=== PATIENT | female | born 1965 | race African-American/Black ===

== ENCOUNTER 2019-08-18 09:12 | Inpatient (IN) | payer OTHER ==
[2019-08-18 09:43] VITALS: BMI 55.3
--- NOTE | 2019-08-18 10:45 | HP ---
COWS - Scale Resting Pulse: 0= [place] 80 or Below Sweatin= Chills/Flushing Restless Observation: 1= Difficult to Sit Still Pupil Size: 0= Normal to Room Light Bone or Joint Aches: 1= Mild Discomfort Runny Nose/ Eye Tearin= Runny Nose/Eyes GI Upset > 30mins: 2= Nausea/Diarrhea Tremor Observation: 2= Slight Tremor Visible Yawning Observation: 1= 1-2x During Session Anxiety or Irritability: 2=Irritable/Anxious Goose Flesh Skin: 0=Smooth Skin COWS Score: 12 Admission ROS BHS - HPI Chief Complaint: I need to stop using the heroin - I'm ruining my life Allergies/Adverse Reactions: Allergies Allergy/AdvReac Type Severity Reaction Status Date / Time No Known Allergies Allergy Verified 08/18/19 09:34 History of Present Illness: 54 yo woman here for detox from long time use of heroin - denies overdose or black outs, no seizures. History of being at [facility] treatment. 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 Urine tox + oxy but not using oxy separately. Never on suboxone or methadone program which we discussed. Exam Limitations: No Limitations - Ebola screening Have you traveled outside of the country in the last 21 days: No (N) Have you had contact with anyone from an Ebola affected area: No Do you have a fever: No - Review of Systems Constitutional: Chills, Loss of Appetite, Changes in sleep EENT: reports: Nose Congestion Respiratory: reports: SOB with Exertion Cardiac: reports: No Symptoms Reported GI: reports: Constipated, Nausea, Poor Appetite : reports: No Symptoms Reported Musculoskeletal: reports: Back Pain, Joint Pain, Muscle Pain Integumentary: reports: No Symptoms Reported Neuro: reports: Headache, Tremors Endocrine: reports: No Symptoms Reported Hematology: reports: No Symptoms Reported Psychiatric: reports: Judgement Intact, Mood/Affect Appropiate, Orientated x3, Anxious Other Systems: Reviewed and Negative Patient History - Patient Medical History Hx Anemia: No Hx Asthma: No Hx Cancer: No Hx Cardiac Disorders: No Hx Congestive Heart Failure: No Hx Hypertension: No Hx Hypercholesterolemia: No Hx Pacemaker: No HX Cerebrovascular Accident: No Hx Seizures: No Hx Diabetes: No Hx Gastrointestinal Disorders: No Hx Liver Disease: No Hx Genitourinary Disorders: No Hx Sexually Transmitted Disorders: No Hx Renal Disease (ESRD): No Hx Thyroid Disease: No Hx Human Immunodeficiency Virus (HIV): No Hx Hepatitis C: No Hx Depression: Yes (hx psych - with zoloft 2012 -never hospitalized) Hx Suicide Attempt: No Hx Bipolar Disorder: No Hx Schizophrenia: No Other Medical History: knee osteoarthritis - Patient Surgical History Hx Genitourinary Surgery: Yes ( age 15) - PPD History Previous Implant?: Yes Documented Results: Negative w/o proof PPD to be Administered?: Yes - Reproductive History Patient is a Female of Child Bearing Age (11 -55 yrs old): Yes - Smoking Cessation Smoking history: Current every day smoker Have you smoked in the past 12 months: Yes Aproximately how many cigarettes per day: 5 Initiated information on smoking cessation: Yes 'Breaking Loose' booklet given: 08/18/19 (give on floor) - Substance & Tx. History Hx Alcohol Use: Yes Hx Substance Use: Yes Substance Use Type: Alcohol, Heroin Hx Substance Use Treatment: Yes (detox, [facility] 23 months) - Substances abused Heroin Substance route: Inhalation Frequency: Daily Amount used: 5-6 bags/day Age of first use: 29 Date of last use: 08/18/19 Alcohol Substance route: Oral Frequency: Daily (2) Amount used: one 22 oz beer Age of first use: 13 Date of last use: 08/17/19 Admission Physical Exam BHS - Vital Signs Vital Signs: Vital Signs - 24 hr 08/18/19 09:35 Temperature 99.2 F Pulse Rate 62 Respiratory 16 Rate - Physical General Appearance: Yes: Nourished, Appropriately Dressed, Moderate Distress, Obese, Tremorous, Anxious HEENTM: Yes: EOMI, Hearing grossly Normal, Normocephalic, Normal Voice, Pharynx Normal, Nasal Congestion, Other (dentures upper and lower) Respiratory: Yes: Normal Breath Sounds, No Respiratory Distress Neck: Yes: No masses,lesions,Nodules, Supple Breast: Yes: Breast Exam Deferred Cardiology: Yes: Regular Rhythm, Regular Rate Abdominal: Yes: Soft, Protuberent Genitourinary: Yes: Within Normal Limits Back: Yes: Normal Inspection Musculoskeletal: Yes: full range of Motion, Gait Steady, Joint Stiffness Extremities: Yes: Normal Inspection, Pedal Edema Neurological: Yes: Fully Oriented, Alert, Normal Mood/Affect, Normal Response Integumentary: Yes: Normal Color, Warm, Other (multiple small moles on face, abdomen (chronic)) Lymphatic: Yes: Within Normal Limits - Diagnostic (1) Uncomplicated opioid dependence Current Visit: Yes Status: Chronic (2) Alcohol use Current Visit: Yes Status: Chronic Comment: states no withdrawal symptoms if she stops (3) Obesity, morbid (more than 100 lbs over ideal weight or BMI > 40) Current Visit: Yes Status: Chronic (4) Edema of both ankles Current Visit: Yes Status: Chronic (5) Nicotine dependence Current Visit: Yes Status: Chronic (6) Osteoarthritis of knees, bilateral Current Visit: Yes Status: Acute Cleared for Admission [facility] - Detox or Rehab [facility] Level of Care: Medically Managed Detox Regimen/Protocol: Methadone Breathalyzer - Breathalyzer Breathalyzer: 0 Urine Drug Screen - Test Device Lot number: [id number] Expiration date: 04/27/21 - Control Is test valid?: Yes - Results Drug screen NEGATIVE: No Urine drug screen results: MOP-Opiates, OXY-Oxycodone Inpatient Rehab Admission - Rehab Decision to Admit Inpatient rehab admission?: No
[2019-08-18] MEDS ORDERED: MENTHOL/PHENOL 1 EACH UD MM PRN (11:00)
[2019-08-18] MEDS ORDERED: MAGNESIUM HYDROX 2400MG/30ML ORAL SUSPENSION 30 ML CUP PO PRN (11:00)
[2019-08-18] MEDS ORDERED: METHADONE HCL 10 MG TABLET (FOR DETOX USE ONLY) PO ONE (11:00)
[2019-08-18] MEDS ORDERED: ACETAMINOPHEN 325 MG TABLET (FP) PO PRN ×2 (11:00)
[2019-08-18] MEDS ORDERED: BISMUTH SUBSALICYLATE 524 MG/30 ML UD PO PRN (11:00)
[2019-08-18] MEDS ORDERED: clonazePAM 0.5 MG TABLET PO PRN (11:00)
[2019-08-18] MEDS ORDERED: NICOTINE POLACRILEX 4 MG GUM BUC PRN (11:00)
[2019-08-18] MEDS ORDERED: MELATONIN 5 MG TABLETS PO PRN (11:00)
[2019-08-18] MEDS ORDERED: MAG HYDROX/AL HYDROX/SIMETH 30 ML UNIT-DOSE CUP PO PRN (11:00)
[2019-08-18] MEDS ORDERED: METHOCARBAMOL 500 MG TABLET PO PRN (11:00)
[2019-08-18] MEDS ORDERED: MAGNESIUM CITRATE 300 ML BOTTLE PO PRN (11:00)
[2019-08-18] MEDS ORDERED: IBUPROFEN 400 MG TABLET (FP) PO PRN (11:00)
--- NOTE | 2019-08-18 23:40 | EKG ---
Test Reason : Blood Pressure : / mmHG Vent. Rate : 053 BPM Atrial Rate : 053 BPM P-R Int : 146 ms QRS Dur : 090 ms QT Int : 430 ms P-R-T Axes : 047 050 046 degrees QTc Int : 403 ms SINUS BRADYCARDIA WITH SINUS ARRHYTHMIA OTHERWISE NORMAL ECG NO PREVIOUS ECGS AVAILABLE Confirmed by TREASURE ANNE, SHRUTHI ([id number]) on 08/18/2019 11:39:35 PM Referred By: Confirmed By:SHRUTHI AMANDA MD
[2019-08-18] MEDS: cloNIDine HCL 0.1 MG TABLET PO PRN (23:47)
[2019-08-18] MEDS: THIAMINE HCL 100 MG TABLET (FP) PO SCH (23:47)
[2019-08-19] MEDS: cloNIDine HCL 0.1 MG TABLET PO PRN (07:06)
[2019-08-19 09:18] LABS: HEMOGLOBIN 12.1 GM/dL (10.7-15.3); MCH 27.5 pg (25.7-33.7); MCHC 31.9 g/dl (32.0-36.0); MEAN CELL VOLUME 86.2 fl (80-96); MEAN PLT VOLUME 8.9 fl (7.5-11.1); PLATELET COUNT 234 K/MM3 (134-434); RBC 4.41 M/mm3 (3.60-5.2); RDW 16.3 % (11.6-15.6); WHITE BLOOD COUNT 6.7 K/mm3 (4.0-10.0)
[2019-08-19 09:19] LABS: ALBUMIN 3.4 g/dl (3.4-5.0); BILIRUBIN,TOTAL 0.6 mg/dL (0.2-1); BLOOD UREA NITROGEN 11.4 mg/dL (7-18); CALCIUM 9.1 mg/dL (8.5-10.1); CREATININE 0.9 mg/dL (0.55-1.3); POTASSIUM 3.9 mmol/L (3.5-5.1); TOT PROT 6.8 g/dl (6.4-8.2)
[2019-08-19] MEDS ORDERED: METHADONE HCL 5 MG TABLET (FOR DETOX USE ONLY) ONE (09:26)
[2019-08-19] MEDS ORDERED: METHADONE HCL 10 MG TABLET (FOR DETOX USE ONLY) ONE (09:26)
[2019-08-19] MEDS ORDERED: METHADONE (DETOX) 20 MG, METHADONE (DETOX) 5 MG PO ONE (10:00)
[2019-08-19] MEDS: PRENATAL VITAMINS W/ FOLIC ACID TABLET (FP) PO SCH (10:22)
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
--- NOTE | 2019-08-19 18:20 | PN ---
BHS COWS - Scale Resting Pulse: 0= [place] 80 or Below Sweatin= Chills/Flushing Restless Observation: 3= Extraneous Movement Pupil Size: 0= Normal to Room Light Bone or Joint Aches: 2= Severe Diffuse Aches Runny Nose/ Eye Tearin= Runny Nose/Eyes GI Upset > 30mins: 3= Vomiting/Diarrhea Tremor Observation of Outstretched Hands: 2= Slight Tremor Visible Yawning Observation: 0= None Anxiety or Irritability: 2=Irritable/Anxious Goose Flesh Skin: 0=Smooth Skin COWS Score: 15 BHS Progress Note (SOAP) Subjective: Sweating, nausea, tremor Objective: 08/19/19 18:17 Last Vital Signs Temp Pulse Resp BP Pulse Ox 99.9 F H 74 20 149/75 08/19/19 17:14 08/19/19 17:14 08/19/19 17:14 08/19/19 17:14 Elevated b/p (denies htn, on clonidine prn) Laboratory Tests 08/19/19 08/19/19 08/19/19 07:40 07:40 07:40 WBC 6.7 RBC 4.41 Hgb 12.1 Hct 38.0 MCV 86.2 MCH 27.5 MCHC 31.9 L RDW 16.3 H Plt Count 234 MPV 8.9 Sodium 140 Potassium 3.9 Chloride 105 Carbon Dioxide 28 Anion Gap 7 L BUN 11.4 Creatinine 0.9 Est GFR (CKD-EPI)AfAm 83.43 Est GFR (CKD-EPI)NonAf 71.98 Random Glucose 130 H Calcium 9.1 Total Bilirubin 0.6 AST 11 L ALT 17 Alkaline Phosphatase 93 Total Protein 6.8 Albumin 3.4 RPR Titer Nonreactive Labs reviewed: serum glucose 130mg/dl 08/19/19 18:18 Assessment: 08/19/19 18:19 Withdrawal sxs Noted with elevated b/p and hyperglycemia Plan: Continue detox Encouraged PO water intake Elevated b/p: denies htn, monitor b/p, continue clonidine prn Hyperglycemia: repeat fasting glucose, send HbA1c
[2019-08-19] MEDS: THIAMINE HCL 100 MG TABLET (FP) PO SCH (23:56)
[2019-08-20] MEDS ORDERED: METHADONE HCL 10 MG TABLET (FOR DETOX USE ONLY) PO ONE (10:00)
[2019-08-20] MEDS: PRENATAL VITAMINS W/ FOLIC ACID TABLET (FP) PO SCH (11:03)
[2019-08-20] MEDS ORDERED: diazePAM 5 MG TABLET PO PRN (12:27)
--- NOTE | 2019-08-20 12:30 | PN ---
BHS COWS - Scale Resting Pulse: 0= [place] 80 or Below Sweatin=Flushed/Facial Moisture Restless Observation: 1= Difficult to Sit Still Pupil Size: 0= Normal to Room Light Bone or Joint Aches: 2= Severe Diffuse Aches Runny Nose/ Eye Tearin= None GI Upset > 30mins: 0= None Tremor Observation of Outstretched Hands: 1= Tremor Beason, Not Seen Yawning Observation: 1= 1-2x During Session Anxiety or Irritability: 2=Irritable/Anxious Goose Flesh Skin: 0=Smooth Skin COWS Score: 9 BHS Progress Note (SOAP) Subjective: sweats chills body aches irritable agitation I want to use my own denture medication because the fixodent here is not helping Objective: 08/20/19 12:29 Vital Signs Temperature 98.4 F 08/20/19 11:08 Pulse Rate 80 08/20/19 11:08 Respiratory Rate 18 08/20/19 11:08 Blood Pressure 154/97 08/20/19 11:08 O2 Sat by Pulse Oximetry (%) Laboratory Tests 08/19/19 08/19/19 08/19/19 07:40 07:40 07:40 WBC 6.7 RBC 4.41 Hgb 12.1 Hct 38.0 MCV 86.2 MCH 27.5 MCHC 31.9 L RDW 16.3 H Plt Count 234 MPV 8.9 Sodium 140 Potassium 3.9 Chloride 105 Carbon Dioxide 28 Anion Gap 7 L BUN 11.4 Creatinine 0.9 Est GFR (CKD-EPI)AfAm 83.43 Est GFR (CKD-EPI)NonAf 71.98 Random Glucose 130 H Fasting Glucose Hemoglobin A1c % Calcium 9.1 Total Bilirubin 0.6 AST 11 L ALT 17 Alkaline Phosphatase 93 Total Protein 6.8 Albumin 3.4 RPR Titer Nonreactive 08/20/19 08/20/19 08:30 08:30 WBC RBC Hgb Hct MCV MCH MCHC RDW Plt Count MPV Sodium Potassium Chloride Carbon Dioxide Anion Gap BUN Creatinine Est GFR (CKD-EPI)AfAm Est GFR (CKD-EPI)NonAf Random Glucose Fasting Glucose 103 Hemoglobin A1c % 6.0 Calcium Total Bilirubin AST ALT Alkaline Phosphatase Total Protein Albumin RPR Titer labs noted aaox3 ambulating no acute distress Assessment: 08/20/19 12:29 withdrawals Plan: continue detox increase fluids valium 10mg prn q4hrs x 3 days only encouraged to keep trying the fixodent.
[2019-08-20] MEDS: THIAMINE HCL 100 MG TABLET (FP) PO SCH (22:10)
[2019-08-20] MEDS: MELATONIN 5 MG TABLETS PO PRN (22:10)
[2019-08-21] MEDS ORDERED: METHADONE HCL 10 MG TABLET (FOR DETOX USE ONLY) ONE (08:53)
[2019-08-21] MEDS ORDERED: METHADONE HCL 5 MG TABLET (FOR DETOX USE ONLY) ONE (08:53)
[2019-08-21] MEDS ORDERED: METHADONE (DETOX) 10 MG, METHADONE (DETOX) 5 MG PO ONE (10:00)
[2019-08-21] MEDS: PRENATAL VITAMINS W/ FOLIC ACID TABLET (FP) PO SCH (10:36)
--- NOTE | 2019-08-21 11:02 | PN ---
BHS COWS - Scale Resting Pulse: 0= [place] 80 or Below Sweatin= Chills/Flushing Restless Observation: 1= Difficult to Sit Still Pupil Size: 0= Normal to Room Light Bone or Joint Aches: 1= Mild Discomfort Runny Nose/ Eye Tearin= None GI Upset > 30mins: 0= None Tremor Observation of Outstretched Hands: 1= Tremor [place], Not Seen Yawning Observation: 1= 1-2x During Session Anxiety or Irritability: 1=Feels Anxious/Irritable Goose Flesh Skin: 0=Smooth Skin COWS Score: 6 BHS Progress Note (SOAP) Subjective: sweats shakes interrupted sleep body aches Objective: 08/21/19 11:02 Vital Signs Temperature 98.1 F 08/21/19 09:15 Pulse Rate 73 08/21/19 09:15 Respiratory Rate 20 08/21/19 09:15 Blood Pressure 155/94 08/21/19 09:15 O2 Sat by Pulse Oximetry (%) aaox3 ambulating no acute distress Assessment: 08/21/19 11:03 withdrawals Plan: continue detox increase fluids clonidine 0.1 bid with parameters
[2019-08-21] MEDS: cloNIDine HCL 0.1 MG TABLET PO SCH ×2 (12:50→21:26)
[2019-08-21] MEDS: THIAMINE HCL 100 MG TABLET (FP) PO SCH (21:23)
[2019-08-21] MEDS: MELATONIN 5 MG TABLETS PO PRN (21:24)
[2019-08-22] MEDS ORDERED: METHADONE HCL 10 MG TABLET (FOR DETOX USE ONLY) PO ONE (10:00)
[2019-08-22] MEDS: PRENATAL VITAMINS W/ FOLIC ACID TABLET (FP) PO SCH (10:40)
[2019-08-22] MEDS: cloNIDine HCL 0.1 MG TABLET PO SCH ×2 (10:40→22:35)
--- NOTE | 2019-08-22 13:57 | PN ---
BHS COWS - Scale Resting Pulse: 0= [place] 80 or Below Sweatin= Chills/Flushing Restless Observation: 1= Difficult to Sit Still Pupil Size: 0= Normal to Room Light Bone or Joint Aches: 0= None Runny Nose/ Eye Tearin= Nasal Congestion GI Upset > 30mins: 0= None Tremor Observation of Outstretched Hands: 0= None Yawning Observation: 0= None Anxiety or Irritability: 0= None Goose Flesh Skin: 0=Smooth Skin COWS Score: 3 BHS Progress Note (SOAP) Subjective: feeling better sweats Objective: 08/22/19 13:57 Vital Signs Temperature 97.2 F L 08/22/19 13:02 Pulse Rate 73 08/22/19 13:02 Respiratory Rate 19 08/22/19 13:02 Blood Pressure 132/81 08/22/19 13:02 O2 Sat by Pulse Oximetry (%) aaox3 ambulating no acute distress Assessment: 08/22/19 14:45 withdrawals Plan: continue detox increase fluids d/c in am
[2019-08-22] MEDS ORDERED: PT OWN MED DRAWER 7, Y5N ONE (19:20)
[2019-08-22] MEDS: THIAMINE HCL 100 MG TABLET (FP) PO SCH (22:36)
[2019-08-23] MEDS ORDERED: METHADONE HCL 5 MG TABLET (FOR DETOX USE ONLY) PO ONE (06:00)
[2019-08-23 07:34] VITALS: BP 151/77; PULSE 54; TEMP 97.9
--- NOTE | 2019-08-23 08:55 | DS ---
[facility] Discharge Summary Admission Date: 08/18/19 Discharge Date: 08/23/19 - History Present History: Alcohol Dependence - Physical Exam Results Vital Signs: Vital Signs Temperature 97.9 F 08/23/19 07:32 Pulse Rate 54 L 08/23/19 07:32 Respiratory Rate 18 08/23/19 07:32 Blood Pressure 151/77 08/23/19 07:32 O2 Sat by Pulse Oximetry (%) Pertinent Admission Physical Exam Findings: pt arrived in withdrawals Laboratory Tests 08/19/19 08/19/19 08/19/19 07:40 07:40 07:40 WBC 6.7 RBC 4.41 Hgb 12.1 Hct 38.0 MCV 86.2 MCH 27.5 MCHC 31.9 L RDW 16.3 H Plt Count 234 MPV 8.9 Sodium 140 Potassium 3.9 Chloride 105 Carbon Dioxide 28 Anion Gap 7 L BUN 11.4 Creatinine 0.9 Est GFR (CKD-EPI)AfAm 83.43 Est GFR (CKD-EPI)NonAf 71.98 Random Glucose 130 H Fasting Glucose Hemoglobin A1c % Calcium 9.1 Total Bilirubin 0.6 AST 11 L ALT 17 Alkaline Phosphatase 93 Total Protein 6.8 Albumin 3.4 RPR Titer Nonreactive 08/20/19 08/20/19 08:30 08:30 WBC RBC Hgb Hct MCV MCH MCHC RDW Plt Count MPV Sodium Potassium Chloride Carbon Dioxide Anion Gap BUN Creatinine Est GFR (CKD-EPI)AfAm Est GFR (CKD-EPI)NonAf Random Glucose Fasting Glucose 103 Hemoglobin A1c % 6.0 Calcium Total Bilirubin AST ALT Alkaline Phosphatase Total Protein Albumin RPR Titer today pt is aaox3 ambulating no acute distress no s/s of withdrawals - Treatment Hospital Course: Detox Protocol Followed, Detoxed Safely, Responded well, Discharged Condition Good, Rehab Referral Accepted Patient has Accepted a Rehab Referral to: pt declined rehab; referral provided - Medication Discharge Medications: Ambulatory Orders NK [No Known Home Medication] 08/18/19 - Diagnosis (1) Alcohol abuse Current Visit: Yes Status: Acute (2) Osteoarthritis of knees, bilateral Current Visit: Yes Status: Acute (3) Substance induced mood disorder Current Visit: Yes Status: Acute (4) Substance-induced sleep disorder Current Visit: Yes Status: Acute (5) Uncomplicated opioid dependence Current Visit: Yes Status: Chronic (6) Depressive disorder Current Visit: Yes Status: Chronic (7) Edema of both ankles Current Visit: Yes Status: Chronic (8) Nicotine dependence Current Visit: Yes Status: Chronic Qualifiers: Nicotine product type: cigarettes Substance use status: uncomplicated Qualified Code(s): F17.210 - Nicotine dependence, cigarettes, uncomplicated (9) Obesity, morbid (more than 100 lbs over ideal weight or BMI > 40) Current Visit: Yes Status: Chronic (10) MDD (major depressive disorder) Current Visit: Yes Status: Ruled-out - AMA Did Patient Leave Against Medical Advice: No
[2019-08-23] MEDS: cloNIDine HCL 0.1 MG TABLET PO SCH (10:03)
[2019-08-23] MEDS: PRENATAL VITAMINS W/ FOLIC ACID TABLET (FP) PO SCH (10:03)
== END 2019-08-23 08:44 | disposition home or self-care (01) | DRG 773 ==
LOC: YASAS 09:12 → Y6N 11:29
PROVIDERS: ADMIT Surgery; ATTEND Surgery
PROC: HZ2ZZZZ Detoxification Services for Substance Abuse Treatment (ICD-10-PCS; principal; 2019-08-18)
DX: F11.23 Opioid dependence with withdrawal (principal); F10.10 Alcohol abuse, uncomplicated; F17.210 Nicotine dependence, cigarettes, uncomplicated; F19.24 Other psychoactive substance dependence with psychoactive substance-induced mood disorder; F19.282 Other psychoactive substance dependence with psychoactive substance-induced sleep disorder; F32.9 Major depressive disorder, single episode, unspecified; M17.0 Bilateral primary osteoarthritis of knee; R03.0 Elevated blood-pressure reading, without diagnosis of hypertension; R73.9 Hyperglycemia, unspecified; E66.01 Morbid (severe) obesity due to excess calories; Z68.43 Body mass index [BMI] 50.0-59.9, adult
CPT/HCPCS: 36415; 80053; 82947; 83036; 85027; 86593; 93005; 93010; J0735

== ENCOUNTER 2020-10-01 16:44 | Emergency (ER) | payer OTHER ==
--- OUTSIDE RECORDS SUMMARY | 2020-10-01 17:09 | XMS ---
:1965 Author Organization [facility] Support Name Relationship Address Phone UE Unavailable Unavailable Unavailable [address] [place] [address] Re-disclosure Warning The records that you are about to access may contain information from federally- assisted alcohol or drug abuse programs. If such information is present, then the following federally mandated warning applies: This information has been disclosed to you from records protected by federal confidentiality rules (42 CFR part 2). The federal rules prohibit you from making any further disclosure of this information unless further disclosure is expressly permitted by the written consent of the person to whom it pertains or as otherwise permitted by 42 CFR part 2. A general authorization for the release of medical or other information is NOT sufficient for this purpose. The Federal rules restrict any use of the information to criminally investigate or prosecute any alcohol or drug abuse patient.The records that you are about to access may contain highly sensitive health information, the redisclosure of which is protected by Article 27-F of the [facility] Public Health law. If you continue you may haveaccess to information: Regarding HIV / AIDS; Provided by facilities licensed or operated by the [facility] Office of Mental Health; or Provided by the [facility] Office for People With Developmental Disabilities. If such information is present, then the following [facility] mandated warning applies: This information has been disclosed to you from confidential records which are protected by state law. State law prohibits you from making any further disclosure of this information without the specific written consent of the person to whom it pertains, or as otherwise permitted by law. Any unauthorized further disclosure in violation of state law may result in a fine or long term sentence or both. A general authorization for the release of medical or other information is NOT sufficient authorization for further disclosure. Insurance Providers Payer name Policy type Policy ID Covered Covered alliance party's Policy P rubio / Coverage alliance party ID relationship to [employer] ormation type gibson [facility] [id number] [employer] [place] [id number] SP [id number] METROPLUS [employer] [id number] SP [id number] METROPLUS Results ID Date Data Source [id number] 09/29/2020 12:53:00 AM EST [facility] Name Value Range Interpretation Description Data Sup porting Code Source(s) Document(s ) SARS [facility] Coronavirus 2 RNA Presence Respiratory Specimen MADAN Probe Detection This lab was ordered by [facility] and rep orted by [facility]. Procedure
[2020-10-01 17:13] VITALS: TEMP 98.8; BMI 56.5
[2020-10-01 18:09] LABS: BASO % 0.2 % (0-2.0); HEMATOCRIT 39.8 % (32.4-45.2); HEMOGLOBIN 12.5 GM/dL (10.7-15.3); LYMPH % 14.6 % (8-40); MCH 26.4 pg (25.7-33.7); MCHC 31.5 g/dl (32.0-36.0); MEAN CELL VOLUME 83.8 fl (80-96); NEUT % 82.2 % (42.8-82.8); PLATELET COUNT 253 K/MM3 (134-434); RBC 4.75 M/mm3 (3.60-5.2); RDW 15.6 % (11.6-15.6); WHITE BLOOD COUNT 8.7 K/mm3 (4.0-10.0)
[2020-10-01 18:33] LABS: CHLORIDE 102 mmol/L (98-107); POTASSIUM 4.2 mmol/L (3.5-5.1); SODIUM 140 mmol/L (136-145)
[2020-10-01 18:35] LABS: GLUCOSE,RANDOM 119 mg/dL (74-106)
[2020-10-01 18:36] LABS: ALBUMIN 3.3 g/dl (3.4-5.0); ANION GAP 8 MMOL/L (8-16); BLOOD UREA NITROGEN 12.3 mg/dL (7-18); CO2 30 mmol/L (21-32)
[2020-10-01 18:38] LABS: CREATININE 0.9 mg/dL (0.55-1.3)
[2020-10-01 18:39] LABS: SGOT/AST 8 U/L (15-37); SGPT/ALT 17 U/L (13-61)
[2020-10-01 18:40] LABS: BILIRUBIN,TOTAL 0.3 mg/dL (0.2-1); TOT PROT 7.4 g/dl (6.4-8.2)
[2020-10-01 18:41] LABS: ALK PHOS 85 U/L (45-117)
[2020-10-01 18:44] LABS: N-TERMINAL BNP 115.9 pg/ml (5-125)
--- NOTE | 2020-10-01 18:45 | PDOC ---
Documentation entered by Karishma Horner SCRIBE, acting as scribe for Jesu Mccoy MD. Jesu Mccoy MD: This documentation has been prepared by the Evens monique Ana, SCRIBE, under my direction and personally reviewed by me in its entirety. I confirm that the documentation accurately reflects all work, treatment, procedures, and medical decision making performed by me. Attending Attestation - Resident Resident Name: Ivone Hamlin - ED Attending Attestation I have performed the following: I have examined & evaluated the patient, The case was reviewed & discussed with the resident, I agree w/resident's findings & plan, Exceptions are as noted - HPI HPI: 10/01/20 17:07 Patient is a 55 year old female with a significant past medical history of COPD who presents to the ED with SOB and cough. Pt states that her symptoms started a few days ago. She was recently seen at [facility] for similar symptoms and diagnosed with COPD. Pt is former long-time smoker. Denies active smoking. Denies F/C. Denies chest pain. Endorses BLE swelling that has worsened over weeks. Patient denies: Allergies: NKDA - Physicial Exam PE: 10/01/20 17:07 See resident exam. - Medical Decision Making 10/01/20 18:46 55 F with SOB and cough. Suspect COPD flare. Pt with BLE swelling but no rales on exam to suggest pulmonary edema. - Labs, trop, BNP - CXR - Nebs, steroids - Reassess Pt signed out to Dr. Lai, pending labs, XR, and re-evaluation Discharge - Discharge Information Problems reviewed: Yes Clinical Impression/Diagnosis: Shortness of breath, Cough, Wheezing Condition: Improved Disposition: HOME - Follow up/Referral - Patient Discharge Instructions Additional Instructions: You came to the emergency department because you were experiencing coughing and difficulties breathing. We ran some blood tests and did a chest x-ray that all showed no concerning features. We then gave you some medications to help with your breathing, which showed much symptomatic improvement. You are stable now to return to [facility] to continue your detox treatment. Further instructions: - continue taking prednisone 60 for 4 days - first dose tomorrow 10/02/2020. - you can use the nebulizer treatments as needed when your breathing worsens - finish taking the azithromycin antibiotic - if you start experiencing worsening of your symptoms that are not relieved by your medications, chest pain, fevers, or chills, please call 911 or report to your nearest emergency department for immediate medical attention. It was a pleasure taking care of you. Print Language: LUXEMBOURGISH - Post Discharge Activity
[2020-10-01] MEDS ORDERED: methylPREDNISolone NA SUCC 125 MG/2 ML VIAL IVPB STA (18:48)
[2020-10-01] MEDS ORDERED: ALBUTEROL SO4 2.5/IPRATROPIUM 0.5 INH SOL 3 ML VIAL.NEB. NEB STA (18:48)
[2020-10-01] MEDS ORDERED: AZITHROMYCIN IVPB 500 MG in DEXTROSE 5%-WATER - 250 ML IVPB STA (18:49)
[2020-10-01] MEDS ORDERED: AZITHROMYCIN IVPB 500 MG/250 ML BAG IVPB ONE (19:01)
[2020-10-01] MEDS ORDERED: ALBUTEROL SO4 2.5/IPRATROPIUM 0.5 INH SOL 3 ML VIAL.NEB. NEB ONE (19:01)
[2020-10-01] MEDS ORDERED: methylPREDNISolone NA SUCC 125 MG/2 ML VIAL ONE (19:01)
--- NOTE | 2020-10-01 19:17 | PDOC ---
History of Present Illness - General Chief Complaint: Shortness of Breath Stated Complaint: R/O PNEUMONIA Time Seen by Provider: 10/01/20 16:48 - History of Present Illness Initial Comments: 55yo F with PMHx of heroin use disorder presents from [facility] due to worsening SOB and coughing. Prior to these recent problems, patient said that she had no medical problems other than her weight issues that she is aware of and takes no medications at home. More than 6 weeks ago, patient noticed that she was swollen all over her body, including bilateral legs, abdomen, arms, and face. The swelling was so severe that she was unable to fit her clothes that she has had for over three years. She also started experiencing SOB on exertion around the same time. Then, last week Tuesday she noticed that she is short of breath at rest and had difficulties finishing her sentences. All this was associated with a wet cough. On Tuesday, her symptoms were bothering her so much that she decided to go to [facility]. Per imaging there she was told that she has mild fluid in her lungs and was sent home (it appears she was sent home without any medications). Now at [facility], she was given duonebs, symbicort, and prednisone, but patient is unsure if this gave her relief as she is nervous about everything that is going on and she is having difficulties "wrapping her head around" everything that is going on. Patient is at [facility] for opioid detox - she already has a bed there. Has been using heroin for over 20 years. Last detox was last year July. Past History - Medical History Allergies/Adverse Reactions: Allergies Allergy/AdvReac Type Severity Reaction Status Date / Time No Known Allergies Allergy Verified 10/01/20 17:51 Home Medications: Ambulatory Orders Acetaminophen [Acetaminophen ER] 650 mg PO Q6H 10/01/20 Albuterol 2.5/Ipratropium 0.5 [Duoneb -] 1 amp NEB Q6H 10/01/20 Albuterol Sulfate Inhaler - [Ventolin Hfa Inhaler -] 2 inh PO Q6H 10/01/20 Azithromycin [Zithromax Tri-Rodrigo (3 DAYS) -] 500 mg PO DAILY 10/01/20 Lisinopril 10 mg PO DAILY 10/01/20 Metformin HCl [Glucophage] 500 mg PO DAILY 10/01/20 Methadone (Detox) [Dolophine -] 10 mg PO DAILY 10/01/20 Thiamine Mononitrate [Vitamin B-1] 100 mg PO HS 10/01/20 predniSONE [Deltasone -] 25 mg PO ASDIR 10/01/20 Anemia: No Asthma: No Cancer: No Cardiac Disorders: No CVA: No COPD: No CHF: No Diabetes: No GI Disorders: No Disorders: No HTN: No Hypercholesterolemia: No Kidney Stones: No Liver Disease: No Seizures: No Thyroid Disease: No - Surgical History Abdominal Surgery: No Appendectomy: No Cardiac Surgery: No Cholecystectomy: No Lung Surgery: No Neurologic Surgery: No Orthopedic Surgery: No - Reproductive History PID: No - Psycho-Social/Smoking History Smoking History: Current every day smoker Have you smoked in the past 12 months: Yes Number of Cigarettes Smoked Daily: 6 Information on smoking cessation initiated: No 'Breaking Loose' booklet given: 09/29/20 - Substance Abuse Hx (Audit-C & DAST Scrn) How often the patient has a drink containing alcohol: 4 0r more times/wk Number of drinks the patient has on a typical day: 10 or more How often the patient has six or more drinks on one occasion: Daily or almost daily Score: In Men: 4 or > Positive; In Women: 3 or > Positive: 12 Screen Result (Pos requires Nsg. Audit-10AR): Positive In the last yr the pt used illegal drug/Rx for NonMed reason: Yes Score: Yes response is considered Positive: 1 Screen Result (Positive result requires Nsg. DAST-10): Positive Review of Systems - Review of Systems Comments:: Constitutional: denied fevers, chills, diaphoresis, changes in appetite/PO intake, endorsed weight gain HEENTM: denied headaches, changes in vision/hearing/tasting/smelling, runny nose, sore throat Respiratory: endorsed severe SOB and a wet productive cough with congestion, denied CP Cardiac: denied palpitations, dizziness Abdomen/GI: endorsed mild generalized abdominal pain, denied NVDC : denied dysuria, urinary frequency/urgency MSK: denied back pain, endorsed generalized swelling Integumentary: denied bruising, dryness, pruritis, rash Neurological: denied numbness, tingling, dizziness, endorsed weakness Psychiatric: endorsed depression *Physical Exam - Vital Signs Last Vital Signs Temp Pulse Resp BP Pulse Ox 98.8 F 50 L 19 156/74 100 10/01/20 16:57 10/01/20 17:43 10/01/20 16:57 10/01/20 16:57 10/01/20 17:43 - Physical Exam GENERAL: AAF, appears stated age, obese body habitus, AAOx4 showing mild signs of acute distress HEAD: Normal with no signs of trauma, good dentition EYES: PERRL, direct and consensual pupillary reflexes intact bilaterally, extraocular movements intact bilaterally EARS, NOSE, THROAT: Moist mucous membranes. NECK: No lymphadenopathy or masses noted LUNGS: Coarse breath sounds with rhales bilaterally on expiration, mild wheezing with rhales on deep inspiration. Accessory muscle use. HEART: RRR, normal S1 and S2 with systolic murmur ABDOMEN: Soft, mildly tender, markedly protuberant, active bowel sounds EXTREMITIES: 2+ radial and dorsalis pedis pulses, warm to touch bilaterally, nontender to palpation, no peripheral pitting edema appreciated but difficult to separate from body habitus, no active lesions or ulcers noted on feet bilaterally including interdigital web spaces NEUROLOGICAL: Cranial nerves II-XII grossly intact. Normal speech with symmetricalfacial movements. Sensation intact bilaterally PSYCHIATRIC: Cooperative and interactive, responds appropriately. Good eye contact. "I am ashamed" mood and affect congruent with stated mood SKIN: Warm, no rashes or lesions noted ED Treatment Course - LABORATORY CBC & Chemistry Diagram: 10/01/20 17:45 10/01/20 17:45 - ADDITIONAL ORDERS Additional order review: Laboratory Results 10/01/20 17:45 Sodium 140 Potassium 4.2 Chloride 102 Carbon Dioxide 30 Anion Gap 8 BUN 12.3 Creatinine 0.9 Est GFR (CKD-EPI)AfAm 82.84 Est GFR (CKD-EPI)NonAf 71.48 Random Glucose 119 H Calcium 9.0 Total Bilirubin 0.3 AST 8 L ALT 17 Alkaline Phosphatase 85 Creatine Kinase 91 Troponin I < 0.02 B-Natriuretic Peptide 115.9 Total Protein 7.4 Albumin 3.3 L 10/01/20 17:45 RBC 4.75 MCV 83.8 MCHC 31.5 L RDW 15.6 MPV 8.0 Neutrophils % 82.2 Lymphocytes % 14.6 Monocytes % 3.0 L Eosinophils % 0.0 Basophils % 0.2 - RADIOLOGY Radiology Studies Ordered: Category Date Time Status CXRPORT [CHEST X-RAY PORTABLE*] [RAD] Stat Radiology 10/01/20 17:50 Completed Medical Decision Making - Medical Decision Making 55yo F with PMHx of heroin use disorder presents from [facility] due to worsening SOB and coughing. - CXR - EKG - CBC - CMP - trop - BNP > CXR, trop, and BNP unremarkable - 2 duonebs (patient already got one at [facility]) - solumedrol 125 - azythromycin 500 10/01/20 20:42 - patient's symptoms significantly improved - patient can be discharged back to [facility] * continue prednisone 60 for 4 days - first dose on 10/02/2020 * nebs PRN * terminate course of azithromycin Discharge - Discharge Information Problems reviewed: Yes Clinical Impression/Diagnosis: Shortness of breath, Cough, Wheezing Condition: Improved - Admission No - Follow up/Referral - Patient Discharge Instructions Additional Instructions: You came to the emergency department because you were experiencing coughing and difficulties breathing. We ran some blood tests and did a chest x-ray that all showed no concerning features. We then gave you some medications to help with your breathing, which showed much symptomatic improvement. You are stable now to return to [facility] to continue your detox treatment. Further instructions: - continue taking prednisone 60 for 4 days - first dose tomorrow 10/02/2020. - you can use the nebulizer treatments as needed when your breathing worsens - finish taking the azithromycin antibiotic - if you start experiencing worsening of your symptoms that are not relieved by your medications, chest pain, fevers, or chills, please call 911 or report to your nearest emergency department for immediate medical attention. It was a pleasure taking care of you. Print Language: KINYARWANDA - Post Discharge Activity
[2020-10-01 20:03] VITALS: BP 138/69; PULSE 64
--- NOTE | 2020-10-02 11:49 | EKG ---
Test Reason : Blood Pressure : / mmHG Vent. Rate : 048 BPM Atrial Rate : 048 BPM P-R Int : 146 ms QRS Dur : 076 ms QT Int : 450 ms P-R-T Axes : 050 053 053 degrees QTc Int : 402 ms POOR DATA QUALITY, INTERPRETATION MAY BE ADVERSELY AFFECTED SINUS BRADYCARDIA OTHERWISE NORMAL ECG WHEN COMPARED WITH ECG OF 29-SEP-2020 18:21, NO SIGNIFICANT CHANGE WAS FOUND Confirmed by MARLA ANNE, SHARNODA ([id number]) on 10/02/2020 11:49:29 AM Referred By: Confirmed By:SHARONDA GUTIÉRREZ MD
== END 2020-10-01 21:48 | disposition home or self-care (01) ==
LOC: JER 16:44
PROC: 3E0F7GC Introduction of Other Therapeutic Substance into Respiratory Tract, Via Natural or Artificial Opening (ICD-10-PCS; principal; 2020-10-01)
PROC: 3E033NZ Introduction of Analgesics, Hypnotics, Sedatives into Peripheral Vein, Percutaneous Approach (ICD-10-PCS; 2020-10-01)
PROC: 3E033GC Introduction of Other Therapeutic Substance into Peripheral Vein, Percutaneous Approach (ICD-10-PCS; 2020-10-01)
DX: R06.02 Shortness of breath (principal); R06.2 Wheezing; R05 Cough
CPT/HCPCS: 36415; 71045-TC-FY; 80053; 82550; 83880; 84484; 85025; 93005; 93010; 99285-25